=== PATIENT | female | born 2000 | race Caucasian/White ===

== ENCOUNTER 2024-07-01 08:01 | Outpatient (CLI) | payer BC | END 2024-07-01 08:02 | disposition home or self-care (01) | LOC: CSHULT 08:01 | PROVIDERS: ATTEND Internal Medicine | DX: R10.33 Periumbilical pain (principal); K64.8 Other hemorrhoids; K58.9 Irritable bowel syndrome, unspecified; R79.89 Other specified abnormal findings of blood chemistry | CPT/HCPCS: 76700 ==